=== PATIENT | male | born 1955 | race Caucasian/White ===

== ENCOUNTER → 2016-08-13 | Outpatient (CLI) | payer OTHER ==
[~2016-08-13] MED LIST: ATOR-26 PO; COEN10CA5 PO; MULTTAB58 PO; OMEP10CA2 PO
[2016-08-13 09:37] LABS: HEMATOCRIT 46.9 % (42-52); MEAN CELL VOLUME 92.7 fL (80-100); MEAN CORPUSCULAR HGB CONC 34.5 g/dl (32-36); MEAN PLATELET VOLUME 12.8 fL (7.4-10.4); PLATELET COUNT 160 K/uL (130-400); RED BLOOD COUNT 5.06 M/uL (4.7-6.1); WHITE BLOOD COUNT 5.15 K/uL (4.8-10.8)
[2016-08-13 10:00] LABS: ALT/SGPT 31 U/L (12-78); BLOOD UREA NITROGEN 16 mg/dl (7-18); BUN/CREATININE RATIO 17.7 (10-20); CALCIUM 9.2 mg/dl (8.5-10.1); CARBON DIOXIDE 28 mmol/L (21-32); CHLORIDE 106 mmol/L (98-107); CREATININE 0.91 mg/dl (0.60-1.40); GLUCOSE 97 mg/dl (70-99); POTASSIUM 4.8 mmol/L (3.5-5.1); SODIUM 140 mmol/L (136-145)
[2016-08-13 10:10] LABS: ALKALINE PHOSPHATASE 69 U/L (45-117); AST/SGOT 17 U/L (15-37); CHOLESTEROL 203 mg/dl (0-200); CHOLESTEROL/HDL RATIO 2.1; HDL CHOLESTEROL 96 mg/dl; LDL CHOLESTEROL CALCULATED 93 mg/dl; PROSTATE SPECIFIC ANTIGEN 0.463 ng/ml (0.000-4.000); TRIGLYCERIDES 72 mg/dl (0-150); VERY LOW DENSITY LIPOPROT CALC 14 mg/dl
== END | disposition home or self-care (01) ==
LOC: C.LAB1850 06:57
PROVIDERS: ATTEND Family Medicine
DX: Z00.00 Encounter for general adult medical examination without abnormal findings (principal); Z12.5 Encounter for screening for malignant neoplasm of prostate; E78.5 Hyperlipidemia, unspecified

== ENCOUNTER → 2016-09-23 | Outpatient (CLI) | payer OTHER ==
[2016-09-23 17:55] LABS: LYME DISEASE AB IGG NEG (NEG); LYME DISEASE AB IGM NEG (NEG)
== END | disposition home or self-care (01) ==
LOC: C.LAB1850 15:40
PROVIDERS: ATTEND Nurse Practitioner Family
DX: R20.0 Anesthesia of skin (principal)

== ENCOUNTER → 2017-09-03 | Outpatient (CLI) | payer OTHER ==
[2017-09-03 09:46] LABS: ALBUMIN 3.9 gm/dl (3.4-5.0); ALT/SGPT 28 U/L (12-78); AST/SGOT 16 U/L (15-37); BLOOD UREA NITROGEN 17 mg/dl (7-18); CALCIUM 9.2 mg/dl (8.5-10.1); CARBON DIOXIDE 27 mmol/L (21-32); CHOLESTEROL 192 mg/dl (0-200); CREATININE 1.03 mg/dl (0.60-1.40); GLUCOSE 102 mg/dl (70-99); POTASSIUM 4.5 mmol/L (3.5-5.1); SODIUM 137 mmol/L (136-145)
[2017-09-03 09:50] LABS: ALKALINE PHOSPHATASE 57 U/L (45-117); LDL CHOLESTEROL CALCULATED 85 mg/dl; TOTAL PROTEIN 7.8 gm/dl (6.4-8.2)
== END | disposition home or self-care (01) ==
LOC: C.LAB1850 07:16
PROVIDERS: ATTEND Physician Assistant
DX: E78.5 Hyperlipidemia, unspecified (principal)

== ENCOUNTER 2024-04-03 21:15 | Observation (INO) ==
[2024-04-03 21:41] LABS: Basophils # (auto) 0.06 K/uL (0.00-0.20); Basophils % (auto) 0.7 %; Eosinophils # (auto) 0.14 K/uL (0.00-0.50); Eosinophils % (auto) 1.6 %; Hematocrit (blood only) 43.4 % (42.0-52.0); Hemoglobin 14.5 g/dl (14.0-18.0); Immature Granulocytes # (auto) 0.03 K/uL (0.01-0.20); Immature Granulocytes % (auto) 0.3 %; Lymphocytes # (auto) 2.29 K/uL (1.20-3.40); Lymphocytes % (auto) 26.5 %; Mean Corpuscular Hemoglobin 31.3 pg (25.0-34.0); Mean Corpuscular Hgb Conc 33.4 g/dL (32.0-36.0); Mean Corpuscular Volume 93.5 fL (80.0-100.0); Monocytes % (auto) 11.6 %; Neutrophils # (auto) 5.13 K/uL (1.40-6.50); Neutrophils % (auto) 59.3 %; Platelet Count 187 K/uL (130-400); RDW Coefficient of Variation 12.6 % (11.5-14.5); Red Blood Count 4.64 M/uL (4.70-6.10); White Blood Count 8.65 K/ul (4.8-10.8)
[2024-04-03 21:59] LABS: Albumin Level 3.9 gm/dl (3.4-5.0); BUN Creatinine Ratio 17.8 (10-20); Bilirubin,Total 0.8 mg/dl (0.2-1.0); Calcium 9.4 mg/dl (8.6-10.3); Creatinine Clr Calc Pharmacy 72.8 ml/min; Globulin 3.8 gm/dl (2.5-4.0); Potassium 4.1 mmol/L (3.5-5.1); Total Protein 7.7 gm/dl (6.0-8.3)
[2024-04-03 22:05] LABS: Troponin I High Sensitivity 5.3 pg/ml (0-20)
[2024-04-03 22:07] LABS: INR 0.9 (0.9-1.1); Partial Thromboplastin Time 26 Seconds (21-31); Prothrombin Time 10.1 Seconds (9.0-12.0)
[2024-04-03 22:34] LABS: Adenovirus PCR Not Detected (NotDetected); Bordetella parapertussis PCR Not Detected (NotDetected); Bordetella pertussis PCR Not Detected (NotDetected); Chlamydia pneumoniae PCR Not Detected (NotDetected); Coronavirus 229E PCR Not Detected (NotDetected); Coronavirus CoV-2 (COVID19)PCR Not Detected (NotDetected); Coronavirus HKU1 PCR Not Detected (NotDetected); Coronavirus NL63 PCR Not Detected (NotDetected); Coronavirus OC43PCR Not Detected (NotDetected); Human Metapneumovirus PCR Not Detected (NotDetected); Influenza A PCR Not Detected (NotDetected); Influenza B PCR Not Detected (NotDetected); Mycoplasma pneumoniae PCR Not Detected (NotDetected); Parainfluenza Virus 1 PCR Not Detected (NotDetected); Parainfluenza Virus 2 PCR Not Detected (NotDetected); Parainfluenza Virus 3 PCR Not Detected (NotDetected); Parainfluenza Virus 4 PCR Not Detected (NotDetected); Respiratory Syncytial VirusPCR Not Detected (NotDetected); Rhinovirus/Enterovirus PCR Not Detected (NotDetected)
[2024-04-03] MEDS: OPTIRAY 320 125ml IV ONE (23:00)
--- NOTE | 2024-04-04 00:50 | XRay Report ---
Exam(s): XR CXR 1 VIEW EXAM: XR Chest, 1 View CLINICAL HISTORY: Reason for exam: Chest pain, nonspecific. TECHNIQUE: Frontal view of the chest. COMPARISON: Prior chest x-ray from February 17, [address] scan of the chest from May 06, 2019 FINDINGS: Lungs: Moderate to heavy peribronchial thickening of the central and lower lobe bronchi with increased interstitial opacities in the lower lobes. Right upper lobe emphysematous changes. No consolidation. Pleural space: Unremarkable. No pneumothorax. Heart: Unremarkable. No cardiomegaly. Mediastinum: Unremarkable. Normal mediastinal contour. Bones/joints: Unremarkable. No acute fracture. IMPRESSION: Findings concerning for bronchitis with pneumonitis, which may be of infectious or inflammatory etiologies. No consolidation or pleural effusion. Electronically signed by: Morelia Carrero MD 04/04/24 00:49 AM
--- NOTE | 2024-04-04 02:08 | Emergency Department Note ---
Impression & Plan Left-sided chest pain ED Provider Note CHIEF COMPLAINT: Chest pain HISTORY OF PRESENT ILLNESS: This 69-year-old male patient past medical history of mitral valve regurg, former smoker, CAD, acid reflux, sleep apnea, lumbar stenosis, anxiety disorder, hyperlipidemia, hypertension presents to the emergency department with complaints of left-sided chest pain. He states it began at 2 AM yesterday. Throughout the day he noticed it periodically, primarily with a deep breath. This evening it seemed to escalate and lying down made things worse. He knew he would not get any rest and became very anxious so presents to the emergency department for evaluation. His states he has been ill for 3 weeks with a viral type process that tested COVID-negative. He denies that he had any fevers during that time but did have a productive cough. REVIEW OF SYSTEMS: A review of systems was performed with positives and pertinent negatives listed in the history of present illness. 10 systems were reviewed and are otherwise negative. ALLERGIES: see below MEDICATIONS: see below PMH: see below SOCIAL HISTORY: see below DDx: Acute coronary syndrome, PE, pneumonia, pleural effusion, pneumothorax PHYSICAL EXAM: Vital signs reviewed. General: Well-appearing but anxious 69-year-old male, in no significant distress. HEENT: No scleral icterus, PERRLA, neck supple. Moist mucous membranes Cardiovascular: Regular rate and rhythm, no extra sounds. Pulmonary: Clear to auscultation bilaterally, normal work of breathing. Abdomen: Soft, nontender, nondistended, positive bowel sounds. Musculoskeletal: Atraumatic, no peripheral edema. Nontender to palpation over the anterior chest wall Neurologic: Patient awake alert and oriented x 3, speech is clear Skin: Warm, dry, no rash EMERGENCY DEPARTMENT COURSE/MDM: This patient was evaluated and appeared to be in no significant distress. IV access was obtained and laboratory work was drawn. Chest x-ray was performed and is clear. Patient symptoms seem to be atypical in nature. His first high-sensitivity troponin is negative, EKG reveals no evidence of acute ischemic change. Due to the nature of the patient's discomfort, a second high-sensitivity troponin was obtained and is trending upward, although it is still within normal limits. CT angiogram of the chest was performed to rule out PE and this study is negative. The case was discussed with Dr. Alfaro of the hospitalist service and findings were reviewed. She has agreed to evaluate the patient for admission and further management. Patient was made aware of the plan and agreed. MONITORING: An order for cardiac monitoring was placed and the patient is noted to be in a normal sinus rhythm at 86 beats per minute. RADIOLOGY: Chest x-ray to my interpretation reveals peribronchial thickening, no focal lung consolidation or failure. CT angiogram of the chest per radiology is negative for PE. EKG: To my interpretation reveals a normal sinus rhythm at 91 bpm, overall low voltage. Normal ST segments. QTc of 435 DISPOSITION: Admission Past Med/Surg History Problem List (Updated 04/06/24 @ 22:40 by Pilar Marx MD) Left-sided chest pain (Acute) Chest pain Moderate mitral regurgitation EKG, abnormal Loss of height Sensorineural hearing loss (SNHL) of both ears Screening for lung cancer Aggressive former smoker Colon cancer screening Impaired fasting glucose (Chronic) Diverticulosis of colon (Chronic) Calcification of coronary artery (Chronic) Acid reflux disease (Chronic) Right rotator cuff tendonitis Bursitis of shoulder, right Encounter for health maintenance examination Knee pain, right Tiredness Low back pain Lumbar radiculopathy, right Vitamin B12 deficiency Vitamin D deficiency disease Prostate cancer screening information given during patient encounter Sleep apnea Right hip pain FH: cancer Degenerative spondylolisthesis Lumbar stenosis with neurogenic claudication Lung nodule (Chronic) Anxiety disorder (Chronic) Sleep apnea uses snore guard Daytime sleepiness Former smoker HTN (hypertension) (Chronic) Hyperlipidemia (Chronic) Medical History GERD (gastroesophageal reflux disease) History of COVID-2020- mild cold symptoms, sinus congestion ; resolved Emphysema lung no symptoms; well controlled Hx of dislocation of shoulder Pulmonary emphysema Surgical History History of esophagogastroduodenoscopy (EGD) Hx of colonoscopy H/O oral surgery Family History Brother Lymphoma Sister Cervical cancer Father Heart disease Hypertension Mother Emphysema of lung COPD (chronic obstructive pulmonary disease) Family/Other Anesthesia complication pts niece; was told she had something genetic that required her to need more anesthesia- unsure of specifics Denies family history of Colon cancer Ovarian cancer Prostate cancer Myocardial infarction Breast cancer Social History Smoking Status: Former smoker Tobacco Type: Cigarettes Second Hand Exposure: No; Do You Dip or Chew Tobacco: No; Hx Alcohol Use: Yes Alcohol type: wine and hard liquor Hx Substance Use: No Preferred Language: Luxembourgish Communication Ability: Effective Visual Impairment: No Limitations Hearing Ability: Normal Stream Control Officer Required: No Beliefs That Will Affect Care: None marital status: Current Living Situation: Spouse Current Living Situation Comment: home with current occupational status: retired Feels Safe at Home: Yes Childhood Exposure to Second-Hand Smoke: Yes Dental Care, Regularly: Yes Physical Activity Frequency: 5-6 Times per Week Seatbelt Use: always Sunscreen Use: Yes Assistive Devices: None Allergies Allergies Allergy/AdvReac Type Severity Reaction Status Date / Time No Known Drug Allergies Allergy Verified 04/04/24 09:26 Home Meds Home Medications Medication Instructions Recorded Confirmed calcium 200 mg (as 2 tab PO BID 11/28/19 04/04/24 citrate)-vitamin D3 6.25 mcg (250 unit) tablet coenzyme Q10 10 mg capsule 100 mg PO DAILY 06/13/21 04/04/24 Previous Rx's Medication Instructions Recorded mecobalamin (vitamin B12) 1,000 500 mcg (1/2 x 1,000 mcg) PO DAILY 11/22/21 mcg chewable tablet #30 tabs atorvastatin 40 mg tablet 40 mg PO DAILY #90 tabs 10/14/23 hydrochlorothiazide 12.5 mg tablet 12.5 mg PO DAILY #90 tabs 02/05/24 losartan 100 mg tablet 100 mg PO DAILY #90 tabs 02/05/24 azithromycin 250 mg tablet See Rx Instructions PO .COMPLEX #6 04/04/24 tabs Results & Data (ED) Vital Signs Vital Signs - 24 hr 04/03/24 21:17 04/03/24 23:01 04/03/24 23:30 Temperature 36.4 C L Temperature Source Temporal Artery Scan Pulse Rate 99 H 87 83 Pulse Rate from SpO2 Sensor 89 84 Pulse Rhythm Regular Respiratory Rate 20 22 21 Respiratory Depth Normal Blood Pressure 149/82 H 130/100 130/85 Blood Pressure Mean 104 101 100 Pulse Oximetry 96 97 93 Oxygen Delivery Method Room Air Sepsis Recent Fever Within 48 Hours No Sepsis New/Unexplained Change in Mental Status No Sepsis Action Taken by Nursing No Action Required 04/04/24 00:30 Temperature Temperature Source Pulse Rate 86 Pulse Rate from SpO2 Sensor 86 Pulse Rhythm Respiratory Rate 16 Respiratory Depth Blood Pressure 127/84 Blood Pressure Mean 97 Pulse Oximetry 91 Oxygen Delivery Method Sepsis Recent Fever Within 48 Hours Sepsis New/Unexplained Change in Mental Status Sepsis Action Taken by Correction Medications Current Medication List: was personally reviewed by me Laboratory Data Attestation: I reviewed the patient's lab results. 04/03/24 21:27 04/03/24 21:27 Lab Results 04/03/24 04/03/24 Range/Units 21:27 23:51 WBC 8.65 (4.8-10.8) K/ul RBC 4.64 L (4.70-6.10) M/uL Hgb 14.5 (14.0-18.0) g/dl Hct 43.4 (42.0-52.0) % MCV 93.5 (80.0-100.0) fL MCH 31.3 (25.0-34.0) pg MCHC 33.4 (32.0-36.0) g/dL RDW Std Deviation 43.0 (36.4-46.3) fL RDW Coeff of Ronal 12.6 (11.5-14.5) % Plt Count 187 (130-400) K/uL MPV 12.0 (9.4-12.4) fL Immature Gran % (Auto) 0.3 % Neut % (Auto) 59.3 % Lymph % (Auto) 26.5 % Cecil % (Auto) 11.6 % Eos % (Auto) 1.6 % Baso % (Auto) 0.7 % Neut # (Auto) 5.13 (1.40-6.50) K/uL Lymph # (Auto) 2.29 (1.20-3.40) K/uL Cecil # (Auto) 1.00 H (0.11-0.59) K/uL Eos # (Auto) 0.14 (0.00-0.50) K/uL Baso # (Auto) 0.06 (0.00-0.20) K/uL Immature Gran # (Auto) 0.03 (0.01-0.20) K/uL PT 10.1 (9.0-12.0) Seconds INR 0.9 (0.9-1.1) APTT 26 (21-31) Seconds PTT Ratio 1.0 Sodium 138 (136-145) mmol/L Potassium 4.1 (3.5-5.1) mmol/L Chloride 105 (98-107) mmol/L Carbon Dioxide 26 (21-32) mmol/L Anion Gap 7 (3-11) BUN 19 (6-23) mg/dl Creatinine 1.07 (0.6-1.4) mg/dl Est Cr Clr Drug Dosing 72.8 ml/min eGFR 75.12 BUN/Creatinine Ratio 17.8 (10-20) Glucose 113 H (70-99(Fasting)) mg/dl Calcium 9.4 (8.6-10.3) mg/dl Total Bilirubin 0.8 (0.2-1.0) mg/dl AST 16 (13-39) U/L ALT 19 (7-52) U/L Alkaline Phosphatase 68 (34-104) U/L Troponin I High Sens 5.3 10.4 D (0-20) pg/ml Total Protein 7.7 (6.0-8.3) gm/dl Albumin 3.9 (3.4-5.0) gm/dl Globulin 3.8 (2.5-4.0) gm/dl Albumin/Globulin Ratio 1.0 (0.9-2) Adenovirus (PCR) Not Detected (NotDetected) B. pertussis DNA (PCR) Not Detected (NotDetected) B.parapertussis DNA PCR Not Detected (NotDetected) C. pneumoniae DNA (PCR) Not Detected (NotDetected) Coronavirus OC43 (PCR) Not Detected (NotDetected) Coronavirus HKU1 (PCR) Not Detected (NotDetected) Coronavirus 229E (PCR) Not Detected (NotDetected) SARS-CoV-2 (PCR) Not Detected (NotDetected) Coronavirus NL63 (PCR) Not Detected (NotDetected) Human Metapneumovir PCR Not Detected (NotDetected) Influenza Type A (PCR) Not Detected (NotDetected) Influenza Type B (PCR) Not Detected (NotDetected) M. pneumoniae (PCR) Not Detected (NotDetected) Parainfluenza 1 (PCR) Not Detected (NotDetected) Parainfluenza 2 (PCR) Not Detected (NotDetected) Parainfluenza 3 (PCR) Not Detected (NotDetected) Parainfluenza 4 (PCR) Not Detected (NotDetected) RSV (PCR) Not Detected (NotDetected) Entero/Rhino (PCR) Not Detected (NotDetected) Administered Medications Discontinued Medications Atorvastatin Calcium (Atorvastatin 40 Mg Tab) 40 mg PO DAILY KANDACE Stop: 05/04/24 08:59 Last Admin: 04/04/24 08:48 Dose: 40 mg Documented By: RRR Hydrochlorothiazide (Hydrochlorothiazide 25 Mg Tab) 12.5 mg PO DAILY KANDACE Stop: 05/04/24 08:59 Last Admin: 04/04/24 08:48 Dose: 12.5 mg Documented By: RRR Ibuprofen (Ibuprofen 200 Mg Tab) 400 mg PO Q4H PRN PRN Reason: Pain or Fever Stop: 05/04/24 04:25 Last Admin: 04/04/24 04:57 Dose: 400 mg Documented By: LEONELA Ioversol (Optiray 320 125ml) 125 ml IV ONCE ONE Stop: 04/03/24 23:00 Last Admin: 04/03/24 23:00 Dose: 118 ml Documented By: PERLA Losartan Potassium (Losartan Potassium 50 Mg Tab) 100 mg PO DAILY KANDACE Stop: 05/04/24 08:59 Last Admin: 04/04/24 08:49 Dose: 100 mg Documented By: KATHRYNR Pantoprazole Sodium (Pantoprazole 40 Mg Tab) 40 mg PO QAM KANDACE Stop: 05/04/24 08:59 Last Admin: 04/04/24 08:49 Dose: 40 mg Documented By: RRR Imaging Data Radiologist's Impression: Chest X-Ray 04/03/24 21:28 Exam(s): XR CXR 1 VIEW EXAM: XR Chest, 1 View CLINICAL HISTORY: Reason for exam: Chest pain, nonspecific. TECHNIQUE: Frontal view of the chest. COMPARISON: Prior chest x-ray from February 17, [address] scan of the chest from May 06, 2019 FINDINGS: Lungs: Moderate to heavy peribronchial thickening of the central and lower lobe bronchi with increased interstitial opacities in the lower lobes. Right upper lobe emphysematous changes. No consolidation. Pleural space: Unremarkable. No pneumothorax. Heart: Unremarkable. No cardiomegaly. Mediastinum: Unremarkable. Normal mediastinal contour. Bones/joints: Unremarkable. No acute fracture. IMPRESSION: Findings concerning for bronchitis with pneumonitis, which may be of infectious or inflammatory etiologies. No consolidation or pleural effusion. Electronically signed by: Morelia Carrero MD 04/04/24 00:49 AM Discharge Plan Visit Data Chief Complaint: Chest Pain Stated Complaint: CHEST PAIN ED Provider: Pilar Marx Discharge Problem: Left-sided chest pain Patient Disposition: Admitted As Inpatient Discharge Instructions Interventions: ED Discharge Assessment Last Done: 04/04/24 04:00
--- NOTE | 2024-04-04 02:10 | History & Physical Report ---
Date of Service April 04, 2024 Assessment & Plan (1) Chest pain: Plan: 69yo male presenting with left sided chest pain that started on 04/03/24 at 02:00. Pain is sharp, pleuritic in nature. First troponin (almost 19 hours after chest pain started) within normal range at 5.3. Repeat, however, did nearly double to 10.4. EKG with some mild ST elevations present on EKG. No significant pericardial effusion noted on CT imaging. Suspect early pericarditis given description of patient's pain, recent viral illness -Telemetry monitoring -Trend troponin -Repeat EKG in AM -Tylenol PRN -Ibuprofen PRN (2) HTN (hypertension): Plan: Blood pressure well controlled -Continue HCTZ 12.5mg po daily -Continue Losartan 100mg po daily (3) Hyperlipidemia: Plan: Chronic, stable -Continue Atorvastatin 40mg po daily History of Present Illness Chief Complaint: chest pain Primary Care Provider: Felicia Munroe MD 69yo male with history of HTN, HLP, Emphysema presenting with left sided pleuritic chest pain. Patient reports he has been ill for the last three weeks with dry cough. He has started to improve over the last 3 days. Yesterday AM 04/03 he woke around 02:00 with left sided pleuritic chest pain which persisted throughout the day. Pain is sharp in nature, left sided, pleuritic. No report of SOB, palpitations, diaphoresis, dizziness or syncope. He reports some difficulty taking a deep breath. Patient took Meloxicam 15mg prior to coming in. He reports some improvement in his chest pain. In the ER he is afebrile, HD stable Troponin as below 5.3 --> 10.[address] elevations in the inferior leads - does not appear to have reciprocal changes Patient presently without chest pain Allergies Allergy/AdvReac Type Severity Reaction Status Date / Time No Known Drug Allergies Allergy Verified 02/05/24 08:31 Home Medications Medication Instructions Recorded Confirmed Type omeprazole 20 mg capsule,delayed 20 mg PO QAM 10/27/18 02/05/24 History release calcium 200 mg (as 2 tab PO BID 11/28/19 02/05/24 History citrate)-vitamin D3 6.25 mcg (250 unit) tablet coenzyme Q10 10 mg capsule 100 mg PO DAILY 06/13/21 02/05/24 History eye promise 1 tab PO DAILY 06/13/21 02/05/24 History mecobalamin (vitamin B12) 1,000 500 mcg (1/2 x 1,000 mcg) PO DAILY 11/22/21 02/05/24 Rx mcg chewable tablet #30 tabs meloxicam 7.5 mg tablet 7.5 - 15 mg (1 - 2 x 7.5 mg) PO 04/15/23 02/05/24 Rx DAILY #30 tabs atorvastatin 40 mg tablet 40 mg PO DAILY #90 tabs 10/14/23 02/05/24 Rx hydrochlorothiazide 12.5 mg tablet 12.5 mg PO DAILY #90 tabs 02/05/24 02/05/24 Rx losartan 100 mg tablet 100 mg PO DAILY #90 tabs 02/05/24 02/05/24 Rx Past Med/Surg History Problem List (Updated 04/04/24 @ 03:27 by Karmen Alfaro DO) Chest pain Moderate mitral regurgitation EKG, abnormal Loss of height Sensorineural hearing loss (SNHL) of both ears Screening for lung cancer Aggressive former smoker Colon cancer screening Impaired fasting glucose (Chronic) Diverticulosis of colon (Chronic) Calcification of coronary artery (Chronic) Acid reflux disease (Chronic) Right rotator cuff tendonitis Bursitis of shoulder, right Encounter for health maintenance examination Knee pain, right Tiredness Low back pain Lumbar radiculopathy, right Vitamin B12 deficiency Vitamin D deficiency disease Prostate cancer screening information given during patient encounter Sleep apnea Right hip pain FH: cancer Degenerative spondylolisthesis Lumbar stenosis with neurogenic claudication Lung nodule (Chronic) Anxiety disorder (Chronic) Sleep apnea uses snore guard Daytime sleepiness Former smoker HTN (hypertension) (Chronic) Hyperlipidemia (Chronic) Medical History GERD (gastroesophageal reflux disease) History of COVID-19 2020- mild cold symptoms, sinus congestion ; resolved Emphysema lung no symptoms; well controlled Hx of dislocation of shoulder Pulmonary emphysema Surgical History History of esophagogastroduodenoscopy (EGD) Hx of colonoscopy H/O oral surgery Family History Brother Lymphoma Sister Cervical cancer Father Heart disease Hypertension Mother Emphysema of lung COPD (chronic obstructive pulmonary disease) Family/Other Anesthesia complication pts niece; was told she had something genetic that required her to need more anesthesia- unsure of specifics Denies family history of Colon cancer Ovarian cancer Prostate cancer Myocardial infarction Breast cancer Social History Smoking Status: Never smoker Tobacco Type: Cigarettes Second Hand Exposure: Yes (CHILDHOOD); Hx Alcohol Use: Yes Alcohol type: wine Hx Substance Use: No Preferred Language: Maltese Communication Ability: Effective Visual Impairment: No Limitations Hearing Ability: Normal Maintenance Fitter Required: No Beliefs That Will Affect Care: None marital status: Current Living Situation: Spouse current occupational status: retired Feels Safe at Home: Yes Childhood Exposure to Second-Hand Smoke: Yes Dental Care, Regularly: Yes Physical Activity Frequency: 5-6 Times per Week Seatbelt Use: always Sunscreen Use: Yes Assistive Devices: None Review of Systems Review of Systems: All systems reviewed & are unremarkable except as noted in HPI & below Physical Exam Physical Exam: General: patient resting comfortably, NAD, non-toxic in appearance, AA&O x 4 Skin: warm, dry, intact, no rashes or lesions HEENT: NC/AT, PERRL, EOMI, anicteric sclera, conjunctiva without injection, external ear normal to inspection and nontender, nares patent, moist mucus membranes, dentition intact, no oropharyngeal lesions, neck supple, trachea midline, no LAD, no thyromegaly, no JVD Heart: +S1/S2, regular, no m/r/g Lungs: equal air entry bilaterally, no rales/rhonchi/wheezes Abd: +BS, soft, NT/ND, no masses/organomegaly/ascites Ext: warm, 2+ pulses in UE/LE bilaterally, no clubbing/cyanosis or edema Neuro: nonfocal, patient AA&O x 4, speech intact, no facial droop, moving all extremities on command with equal strength 5/5 Results & Data Results & Data Vital Signs (Past 12 Hours) Vital Signs Temp Pulse Resp BP Pulse Ox O2 Del Method 04/04/24 00:30 86 16 127/84 91 04/03/24 23:30 83 21 130/85 93 04/03/24 23:01 87 22 130/100 97 11/17/24 21: 36.4 C L 99 H 20 149/82 H 96 Room Air Laboratory Results Laboratory Results WBC 8.65 K/ul (4.8-10.8) 04/03/24: RBC 4.64 M/uL (4.70-6.10) L 04/03/24: Hgb 14.5 g/dl (14.0-18.0) 04/03/24: Hct 43.4 % (42.0-52.0) 04/03/24: MCV 93.5 fL (80.0-100.0) 04/03/24: MCH 31.3 pg (25.0-34.0) 04/03/24: MCHC 33.4 g/dL (32.0-36.0) 04/03/24: RDW Std Deviation 43.0 fL (36.4-46.3) 04/03/24: RDW Coeff of Ronal 12.6 % (11.5-14.5) 04/03/24: Plt Count 187 K/uL (130-400) 04/03/24: MPV 12.0 fL (9.4-12.4) 04/03/24: Immature Gran % (Auto) 0.3 % 04/03/24: Neut % (Auto) 59.3 % 04/03/24: Lymph % (Auto) 26.5 % 04/03/24: [place] % (Auto) 11.6 % 04/03/24: Eos % (Auto) 1.6 % 04/03/24: Baso % (Auto) 0.7 % 04/03/24: Neut # (Auto) 5.13 K/uL (1.40-6.50) 04/03/24: Lymph # (Auto) 2.29 K/uL (1.20-3.40) 04/03/24: [place] # (Auto) 1.00 K/uL (0.11-0.59) H 04/03/24: Eos # (Auto) 0.14 K/uL (0.00-0.50) 11/17/24 21:27 Baso # (Auto) 0.06 K/uL (0.00-0.20) 04/03/24 21: Immature Gran # (Auto) 0.03 K/uL (0.01-0.20) 04/03/24 21: PT 10.1 Seconds (9.0-12.0) 04/03/24 21: INR 0.9 (0.9-1.1) 04/03/24: APTT 26 Seconds (21-31) 04/03/24 21: PTT Ratio 1.0 04/03/24 21: Sodium 138 mmol/L (136-145) 04/03/24 21: Potassium 4.1 mmol/L (3.5-5.1) 04/03/24: Chloride 105 mmol/L (98-107) 04/03/24: Carbon Dioxide 26 mmol/L (21-32) 04/03/24: Anion Gap 7 (3-11) 04/03/24 21: BUN 19 mg/dl (6-23) 04/03/24 21: Creatinine 1.07 mg/dl (0.6-1.4) 04/03/24 21: Est Cr Clr Drug Dosing 72.8 ml/min 04/03/24 21: eGFR 75.12 04/03/24 21: BUN/Creatinine Ratio 17.8 (10-20) 04/03/24 21: Glucose 113 mg/dl (70-99(Fasting)) H 04/03/24: Calcium 9.4 mg/dl (8.6-10.3) 04/03/24 21: Total Bilirubin 0.8 mg/dl (0.2-1.0) 04/03/24 21: AST 16 U/L (13-39) 04/03/24 21: ALT 19 U/L (7-52) 04/03/24 21: Alkaline Phosphatase 68 U/L (34-104) 04/03/24 21: Troponin I High Sens 10.4 pg/ml (0-20) D 04/03/24 23:51 Total Protein 7.7 gm/dl (6.0-8.3) 04/03/24 21: Albumin 3.9 gm/dl (3.4-5.0) 04/03/24: Globulin 3.8 gm/dl (2.5-4.0) 04/03/24 21: Albumin/Globulin Ratio 1.0 (0.9-2) 04/03/24 21:27 Adenovirus (PCR) Not Detected (NotDetected) 04/03/24 21: B. pertussis DNA (PCR) Not Detected (NotDetected) 04/03/24 21: B.parapertussis DNA PCR Not Detected (NotDetected) 04/03/24 21: C. pneumoniae DNA (PCR) Not Detected (NotDetected) 04/03/24:27 Coronavirus OC43 (PCR) Not Detected (NotDetected) 04/03/24 21: Coronavirus HKU1 (PCR) Not Detected (NotDetected) 04/03/24 21: Coronavirus 229E (PCR) Not Detected (NotDetected) 04/03/24 21: SARS-CoV-2 (PCR) Not Detected (NotDetected) 04/03/24 21:27 Coronavirus NL63 (PCR) Not Detected (NotDetected) 04/03/24 21: Human Metapneumovir PCR Not Detected (NotDetected) 04/03/24 21:27 Influenza Type A (PCR) Not Detected (NotDetected) 04/03/24 21:27 Influenza Type B (PCR) Not Detected (NotDetected) 04/03/24 21:27 M. pneumoniae (PCR) Not Detected (NotDetected) 04/03/24 21:27 Parainfluenza 1 (PCR) Not Detected (NotDetected) 04/03/24 21:27 Parainfluenza 2 (PCR) Not Detected (NotDetected) 04/03/24 21:27 Parainfluenza 3 (PCR) Not Detected (NotDetected) 04/03/24 21:27 Parainfluenza 4 (PCR) Not Detected (NotDetected) 04/03/24 21: RSV (PCR) Not Detected (NotDetected) 04/03/24 21: Entero/Rhino (PCR) Not Detected (NotDetected) 04/03/24 21:27 Impressions Chest X-Ray 04/03/24 21:28 Exam(s): XR CXR 1 VIEW EXAM: XR Chest, 1 View CLINICAL HISTORY: Reason for exam: Chest pain, nonspecific. TECHNIQUE: Frontal view of the chest. COMPARISON: Prior chest x-ray from February 17, [address] scan of the chest from May 06, 2019 FINDINGS: Lungs: Moderate to heavy peribronchial thickening of the central and lower lobe bronchi with increased interstitial opacities in the lower lobes. Right upper lobe emphysematous changes. No consolidation. Pleural space: Unremarkable. No pneumothorax. Heart: Unremarkable. No cardiomegaly. Mediastinum: Unremarkable. Normal mediastinal contour. Bones/joints: Unremarkable. No acute fracture. IMPRESSION: Findings concerning for bronchitis with pneumonitis, which may be of infectious or inflammatory etiologies. No consolidation or pleural effusion. Electronically signed by: Morelia Carrero MD 04/04/24 00:49 AM Chest CTA 04/03/24 22:27 Exam(s): CTA CHEST IV Amt: 118 ml optiray 320 EXAM: CT Angiography Chest With Intravenous Contrast CLINICAL HISTORY: Reason for exam: PE. TECHNIQUE: Axial computed tomographic angiography images of the chest with intravenous contrast. CTDI is 40 mGy and DLP is 857.06 mGy-cm. Automated exposure control was utilized for the study. A dose lowering technique was utilized adhering to the principles of ALARA. MIP reconstructed images were created and reviewed. COMPARISON: No relevant prior studies available. FINDINGS: Pulmonary arteries: Unremarkable. No pulmonary embolism. Aorta: No acute findings. No thoracic aortic aneurysm. Lungs: Bilateral right greater than left apical emphysematous change. No mass. No consolidation. Pleural space: Unremarkable. No significant effusion. No pneumothorax. Heart: Unremarkable. No cardiomegaly. No significant pericardial effusion. No evidence of RV dysfunction. Bones/joints: No acute fracture. No dislocation. Soft tissues: Unremarkable. Lymph nodes: Unremarkable. No enlarged lymph nodes. Liver: Hepatic steatosis. IMPRESSION: No acute findings in the visualized arteries of the chest. Electronically signed by: Roland Carson MD 04/04/24 03:15 AM ECG Additional Comments: EKG with NSR at 91bpm, normal axis, LB=425, QRS=82, MEz=361, ST segments with mild elevation in inferior leads, no reciprocal changes PG Care Time/CCT Total # of Minutes Spent Total Time Spent with Patient: Total time spent is greater than 50% in coordination of care (as documented) at patient's floor/unit and/or counseling patient: Coding Level of Care Code 57506 INT INP/OBS CARE 2/55MIN Diagnoses Chest pain R07.9 HTN (hypertension) I10 Hyperlipidemia E78.5
--- NOTE | 2024-04-04 03:16 | CT Scan Report ---
Exam(s): CTA CHEST IV Amt: 118 ml optiray 320 EXAM: CT Angiography Chest With Intravenous Contrast CLINICAL HISTORY: Reason for exam: PE. TECHNIQUE: Axial computed tomographic angiography images of the chest with intravenous contrast. CTDI is 40 mGy and DLP is 857.06 mGy-cm. Automated exposure control was utilized for the study. A dose lowering technique was utilized adhering to the principles of ALARA. MIP reconstructed images were created and reviewed. COMPARISON: No relevant prior studies available. FINDINGS: Pulmonary arteries: Unremarkable. No pulmonary embolism. Aorta: No acute findings. No thoracic aortic aneurysm. Lungs: Bilateral right greater than left apical emphysematous change. No mass. No consolidation. Pleural space: Unremarkable. No significant effusion. No pneumothorax. Heart: Unremarkable. No cardiomegaly. No significant pericardial effusion. No evidence of RV dysfunction. Bones/joints: No acute fracture. No dislocation. Soft tissues: Unremarkable. Lymph nodes: Unremarkable. No enlarged lymph nodes. Liver: Hepatic steatosis. IMPRESSION: No acute findings in the visualized arteries of the chest. Electronically signed by: Roland Carson MD 04/04/24 03:15 AM
[2024-04-04] MEDS ORDERED: ACETAMINOPHEN 325 MG TAB PO PRN (04:26)
[2024-04-04] MEDS ORDERED: ONDANSETRON INJ 2 MG/ML 2 ML VIAL IV PRN (04:26)
[2024-04-04 04:54] VITALS: RESP 18
[2024-04-04] MEDS: IBUPROFEN 200 MG TAB PO PRN (04:57)
[2024-04-04 07:15] VITALS: BP 130/80; TEMP 97.7; O2SAT 91
[2024-04-04] MEDS: hydroCHLOROthiazide 25 MG TAB PO SCH (08:48)
[2024-04-04] MEDS: ATORVASTATIN 40 MG TAB PO SCH (08:48)
[2024-04-04] MEDS: PANTOprazole 40 MG TAB PO SCH (08:49)
[2024-04-04] MEDS: LOSARTAN POTASSIUM 50 MG TAB PO SCH (08:49)
--- NOTE | 2024-04-04 09:22 | Discharge Summary ---
Date of Service April 04, 2024 Admission HPI Per Admitting Provider 69yo male with history of HTN, HLP, Emphysema presenting with left sided pleuritic chest pain. Patient reports he has been ill for the last three weeks with dry cough. He has started to improve over the last 3 days. Yesterday AM 04/03 he woke around 02:00 with left sided pleuritic chest pain which persisted throughout the day. Pain is sharp in nature, left sided, pleuritic. No report of SOB, palpitations, diaphoresis, dizziness or syncope. He reports some difficulty taking a deep breath. Patient took Meloxicam 15mg prior to coming in. He reports some improvement in his chest pain. In the ER he is afebrile, HD stable Troponin as below 5.3 --> 10.[address] elevations in the inferior leads - does not appear to have reciprocal changes Patient presently without chest pain Admission Exam Per Admitting Provider General: patient resting comfortably, NAD, non-toxic in appearance, AA&O x 4 Skin: warm, dry, intact, no rashes or lesions HEENT: NC/AT, PERRL, EOMI, anicteric sclera, conjunctiva without injection, external ear normal to inspection and nontender, nares patent, moist mucus membranes, dentition intact, no oropharyngeal lesions, neck supple, trachea midline, no LAD, no thyromegaly, no JVD Heart: +S1/S2, regular, no m/r/g Lungs: equal air entry bilaterally, no rales/rhonchi/wheezes Abd: +BS, soft, NT/ND, no masses/organomegaly/ascites Ext: warm, 2+ pulses in UE/LE bilaterally, no clubbing/cyanosis or edema Neuro: nonfocal, patient AA&O x 4, speech intact, no facial droop, moving all extremities on command with equal strength 5/5 Principal Diagnosis Chest pain Discharge Exam General:Alert and oriented, no acute distress, HEENT: Normocephalic, moist oral mucosa, Cardio: Regular rate and rhythm, no murmur, Resp:Lungs clear to auscultation b/l, no wheezes or rhonchi, GI: Soft and nontender, nondistended, bowel sounds active Skin: Warm, pink, dry, Discharge Data Allergies Allergy/AdvReac Type Severity Reaction Status Date / Time No Known Drug Allergies Allergy Verified 04/04/24 09:26 Consultations 04/04/24 02:08 ED Decision to Admit Stat Ordered Studies 04/03/24 22:27 CT angio chest PE protocol Stat Hospital Course (1) Chest pain: Plan Pt is a 69 yo male with a past medical hx of HTN, HLD, GERD, former smoker who presents to the hospital on 04/03 for chest pain in the setting of 3 weeks upper respiratory illness. Chest pain, pleuritic - pt has been sick with URI symptoms and cough for the last 3 weeks, had constant L sided pleuritic chest pain yesterday from 2 am to last night, resolved with 400 mg ibuprofen dose - overall URI symptoms have improved but last few days was coughing more - trop elevated 5.3 -> 10.4 -> 17.8 - EKG sinus without diffuse ST elevations - CXR/CT chest; no pericardial effusion, findings concerning for bronchitis with pneumonitis but no consolidations - ultimately pain seems post likely MSK related, will recommend prn ibuprofen for pain and give a azithromycin on discharge for possible atypical pneumonia as his URI symptoms have been ongoing for 3 weeks now, pt agreeable with this plan as he was hoping to be discharged today on admission given resolution of his symptoms Reviewed echo from 02/22/24; EF 55-60%, grade I diastolic dysf, mild-mod mitral regurg, trace pulm and tricuspid regurg - 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 Non-emergency contact: Primary Care Provider Call non-emergency contact if: you have any medication questions, your symptoms worsen, your pain is worsening and your temperature is above 101 Follow-up/Referrals: Felicia Munroe MD [Primary Care Provider] - 04/11/24 10:20 am Diet: Regular and Heart Healthy Addtl Attending Provider Instructions: You were admitted to the hospital for chest pain. Thankfully our scans, EKG, and labwork have indicated that your chest pain does not seem related to issues with your heart. We think your illness with cough for 3 weeks most likely caused some muscle strain of the muscles between the ribs, hence why it hurt worse with deep breaths when these muscles are stretched out and got better with an anti- inflammatory (ibuprofen). We feel at this point it is safe for you to go home. You can continue to use ibuprofen 400-600 mg every 6 hours as needed for pain. We have also sent for an antibiotic for you to see if that can improve your lingering infection symptoms. You can take a dose of this antibiotic as soon as you get home today. As we discussed during your visit here, your most recent echocardiogram (heart ultrasound) suggests you have untreated sleep apnea. We recommend you follow-up with your primary care doctor on discharge for a new sleep study for a new attempt of CPAP. Thankfully, they have various mask options nowadays that can help people find one that is more comfortable for them. It is important to treat sleep apnea, as if left untreated it puts increased strain on the heart, leading to further valvular issues and sometimes very difficult to control blood pressure over time. You should call your primary care today to make an appointment this week for a hospital follow-up. If your chest pain returns and is worsening despite ibuprofen, is associated with activity, or is associated with shortness of breath or feeling faint, please return to the hospital. Pending Studies at Discharge: No Stand-Alone Forms: My [facility] Medications and DC Order Prescriptions: New azithromycin 250 mg tablet See Rx Instructions .ROUTE .COMPLEX Qty: 6 0RF Rx Instructions: For 250 mg dose pack: take 500 mg today (day 1), then 250 mg for 4 days (days 2-5) Continued coenzyme Q10 10 mg capsule 100 mg PO DAILY mecobalamin (vitamin B12) 1,000 mcg tablet,chewable 500 mcg PO DAILY Qty: 30 0RF atorvastatin 40 mg tablet 40 mg PO DAILY Qty: 90 1RF calcium citrate-vitamin D3 200 mg calcium -250 unit tablet 2 tab PO BID hydrochlorothiazide 12.5 mg tablet 12.5 mg PO DAILY Qty: 90 2RF losartan 100 mg tablet 100 mg PO DAILY Qty: 90 3RF Discharge Orders: Discharge Order (Routine); Ordered 04/04/24 Ordered By: Asha Oglesby Admission Data Admit Date/Time: 04/04/24 02:10 Attending Provider: Roland Barbosa Admit Provider: Karmen Alfaro Primary Care Provider: Felicia Munroe V. Other Providers: Karmen Alfaro Other Interventions: Discharge Summary Assessment (RN) Last Done: 04/04/24 11:40 Supervising Physician Co-Signing Physician Notes I personally examined the patient and verified all aguilar points of history and exam, discussed case, and agree with decision making with Dr Oglesby felt almost immediately better after ibuprofen. notes coughing for several weeks and feeling congested - sharp stabbing L sided chest pain worse with breathing. vitals noted nad heent nc at mmm L sided ribs exhaled compared to R. L sided chest pain - after further review more c/w rib dysfunction than pericarditis. negative troponin/negative chest CT both reassuring. taught rib stretches. can continue ibuprofen. no typicals but since still coughing/doesn't feel better and illness ongoing for a few weeks, agree with zithromax. safe/stable for home valvular heart disease - asked about relevance - discussed MR does not appear symptomatic based on his hx, hard to tell chronicity - but would follow clinically (and probably recheck echo ~6 months to ensure no progression). 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
[2024-04-04 11:42] VITALS: PULSE 83
--- NOTE | 2024-04-04 17:18 | Electrocardiogram Report ---
Test Reason : Blood Pressure : */* mmHG Vent. Rate : 91 BPM Atrial Rate : 91 BPM P-R Int : 176 ms QRS Dur : 82 ms QT Int : 354 ms P-R-T Axes : 47 68 57 degrees QTcB Int : 435 ms Normal sinus rhythm Low voltage QRS Nonspecific ST abnormality When compared with ECG of 09-Dec-1998 10:30, Vent. rate has increased by 39 bpm QRS voltage has decreased ST elevation now present in Inferior leads Confirmed by Dario Rodriguez ([id number]) on 04/04/2024 5:18:24 PM Referred By: REFERRED SELF Confirmed By: Dario Rodriguez
--- NOTE | 2024-04-04 17:20 | Electrocardiogram Report ---
Test Reason : Blood Pressure : */* mmHG Vent. Rate : 76 BPM Atrial Rate : 76 BPM P-R Int : 182 ms QRS Dur : 82 ms QT Int : 382 ms P-R-T Axes : 65 68 52 degrees QTcB Int : 429 ms Normal sinus rhythm Low voltage QRS Nonspecific ST abnormality Abnormal ECG When compared with ECG of 03-Apr-2024 21:23, No significant change was found Confirmed by Dario Rodriguez ([id number] on 04/04/2024 5:19:39 PM Referred By: REFERRED SELF Confirmed By: Dario Rodriguez
--- NOTE | 2024-04-04 18:19 | Billing Data ---
Date of Service April 04, 2024 Coding Level of Care Code 82487 IN/OBS DISCH 30 MIN/LESS
--- NOTE | 2024-04-04 18:22 | Billing Data ---
Date of Service April 04, 2024 Coding Level of Care Code 01009 IN/OBS DISCH 30 MIN/LESS
== END 2024-04-04 12:01 | disposition home or self-care (01) ==
LOC: 2W 21:15 → ED 21:15 → SUATTDRO 04-04 02:10 → 2W 04-04 04:00